=== PATIENT | male | born 1955 | race Caucasian/White ===

== ENCOUNTER 2016-08-05 14:11 | Emergency (ER) | payer MEDICARE, MEDICAID ==
[~2016-08-05] VITALS: Ht 167.6 cm; Wt 114.0 kg
[2016-08-05 14:22] VITALS: BP 165/96
== END 2016-08-05 19:00 | disposition left against medical advice (07) ==
LOC: ER 16:18
DX: F41.0 Panic disorder [episodic paroxysmal anxiety] (principal); Z53.21 Procedure and treatment not carried out due to patient leaving prior to being seen by health care provider